=== PATIENT | male | born 1935 | race Caucasian/White ===

== ENCOUNTER 2016-09-24 10:41 | Inpatient (IN) | payer MEDICARE ==
[~2016-09-24] VITALS: Ht 177.8 cm; Wt 88.5 kg
--- NOTE | 2016-09-24 11:15 | NUR ---
PT TO ROOM 2217 FROM OFFICE. AT SIDE.ASSESSMENT PER ADMIT PACK.IV SITED TO LEFT AC X2 STICKS USING ASEPTIC TECH,20G. NPO ORDERED
[2016-09-24 12:11] LABS: BASOPHILS 0.1 % (0-2); EOSINOPHILS 0 % (0-7); HEMATOCRIT 36.2 % (42.0-54.0); HEMOGLOBIN 12.2 g/dL (13.5-17.5); IMMATURE GRANULOCYTES 0.5 % (0-5); LYMPHOCYTES 3.2 % (15-50); MCH 29.8 pg (26.0-34.0); MCHC 33.7 g/dL (31.0-37.0); MCV 88.5 fL (80.0-100.0); MEAN PLATELET VOLUME 11.1 fL (7.4-10.4); MONOCYTES 6.4 % (2-11); NEUTROPHILS 89.8 % (40-80); PLATELET COUNT 173 10x3/uL (130-400); RBC 4.09 10x6/uL (4.20-6.10); RDW 13.3 % (11.5-14.5); WBC 16.7 10x3/uL (4.8-10.8)
[2016-09-24 12:31] LABS: ALBUMIN 2.3 g/dL (3.4-5.0); ANION GAP 14.9 mmol/L (8-16); BILIRUBIN - TOTAL 0.4 mg/dL (0.2-1.3); CARBON DIOXIDE 25.6 mmol/L (21.0-32.0); CREATININE - SERUM 2.7 mg/dL (0.6-1.3); POTASSIUM - SERUM 4.5 mmol/L (3.5-5.1); PROTEIN - SERUM 7.4 g/dL (6.4-8.2)
[2016-09-24 13:28] VITALS: BP 146/73
[2016-09-24 14:12] LABS: AMORPHOUS SEDIMENT >1+ /lpf (NONE SEEN); APPEARANCE HAZY (CLEAR); BACTERIA FEW /hpf (NONE SEEN); BILIRUBIN NEGATIVE (NEGATIVE); COLOR YELLOW (YELLOW); EPITHELIAL CELLS 0-5 /hpf (0-5); GLUCOSE 1000 mg/dL (NEGATIVE); GRANULAR CAST 0-5 /lpf (NONE SEEN); HYALINE CAST 0-5 /lpf (NONE SEEN); KETONE NEGATIVE (NEGATIVE); LEUKOCYTE ESTERASE NEGATIVE (NEGATIVE); MUCUS >1+ /lpf (NONE SEEN); NITRITE NEGATIVE (NEGATIVE); PROTEIN 3+ mg/dL (NEGATIVE); RED CELLS - URINE 0-5 /hpf (0-5); UROBILINOGEN NORMAL (NORMAL); WHITE CELLS - URINE 0-5 /hpf (0-5)
[2016-09-24 16:11] VITALS: BP 146/73; BMI 28.1
[2016-09-24 16:15] VITALS: BP 127/66
[2016-09-24] MEDS ORDERED: GLUCOTROL 5 MG T5 MG PO (17:42)
[2016-09-24] MEDS ORDERED: NIFEDIPINE ER90 MG PO (17:43)
[2016-09-24] MEDS ORDERED: JANUVIA50 MG PO (17:43)
[2016-09-24] MEDS ORDERED: FENOFIBRATE160 MG PO (17:44)
[2016-09-24] MEDS ORDERED: LIPITOR20 MG PO (17:44)
[2016-09-24] MEDS ORDERED: LOTENSIN40 MG PO (17:45)
[2016-09-24] MEDS ORDERED: MULTIPLE VITAMI1 TA1 PO (17:45)
[2016-09-24 19:00] VITALS: BP 128/64
[2016-09-25] VITALS: BP 154/71
--- NOTE | 2016-09-25 03:08 | NUR ---
RESTING WITH EYES CLOSED, NO DISTRESS NOTED, FALL PRECAUTIONS IN PLACE, CL IN REACH
[2016-09-25 05:08] LABS: BASOPHILS 0 % (0-2); EOSINOPHILS 0 % (0-7); HEMATOCRIT 34.7 % (42.0-54.0); HEMOGLOBIN 11.5 g/dL (13.5-17.5); IMMATURE GRANULOCYTES 0.4 % (0-5); LYMPHOCYTES 5.2 % (15-50); MCH 29.6 pg (26.0-34.0); MCHC 33.1 g/dL (31.0-37.0); MCV 89.2 fL (80.0-100.0); MEAN PLATELET VOLUME 11.6 fL (7.4-10.4); MONOCYTES 7.7 % (2-11); NEUTROPHILS 86.7 % (40-80); PLATELET COUNT 185 10x3/uL (130-400); RBC 3.89 10x6/uL (4.20-6.10); RDW 13.5 % (11.5-14.5); WBC 13.4 10x3/uL (4.8-10.8)
[2016-09-25 05:31] LABS: ANION GAP 16.1 mmol/L (8-16); BILIRUBIN - TOTAL 0.31 mg/dL (0.2-1.3); CALCIUM 8.6 mg/dL (8.5-10.1); CARBON DIOXIDE 24.6 mmol/L (21.0-32.0); CREATININE - SERUM 2.7 mg/dL (0.6-1.3); POTASSIUM - SERUM 4.7 mmol/L (3.5-5.1); PROTEIN - SERUM 6.9 g/dL (6.4-8.2)
[2016-09-25 08:49] VITALS: BP 153/75
--- NOTE | 2016-09-25 10:38 | NUR ---
* Is the patient Alert and Oriented? Yes 0 * How many steps to enter\exit or inside your home? 2 0 * PCP [facility] 0 * Pharmacy [facility] 0 * Preadmission Environment Home Alone 0 * ADLs Independent 0 * Equipment None 0 * List name and contact numbers for known caregivers / representatives who currently or will assist patient after discharge: [facility] ([phone]) 0 * Community resources currently utilized None 0 * Additional services required to return to the preadmission environment? No 0 * Can the patient safely return to the preadmission environment? Yes 0 * Has this patient been hospitalized within the prior 30 days at any hospital? No 0 Grand Total: 0 Patient Name: GABRIELA MARTIN Admission Status: Elective Accout number: [id number] Admission Date: 09-24-2016 : 1937 Admission Diagnosis: Attending: ASHTYN Current LOS: 1 Anticipated DC Date: 09-28-2016 Planned Disposition: Home Primary Insurance: [employer] PPO MCR [employer] Discharge Planning Comments: CM met with patient and ([facility]) to assess discharge planning needs. Patient lives independently with his and plans to return there. Patient denies any HH or Cm needs at this time. 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 CM will continue to follow and assist as needed. PCP: Ashtyn Pharmacy: [facility] - [facility] ([phone]) Senior Asp Net Developer: Nicole Munroe
[2016-09-25 12:41] VITALS: BP 147/74
[2016-09-25 13:14] VITALS: Ht 177.8 cm; Wt 88.5 kg
[2016-09-25 16:23] VITALS: BP 154/76
--- NOTE | 2016-09-25 18:30 | NUR ---
APPLIED SCDS TO BILATERAL LEGS
--- NOTE | 2016-09-25 19:19 | NUR ---
GAVE PATIENT A LARGE CUP OF ICE WATER.
[2016-09-25 23:11] VITALS: BP 118/62
[2016-09-26] VITALS (10 sets, daily range): BP systolic 120–170; BP diastolic 57–94
[2016-09-26 05:09] LABS: BASOPHILS 0 % (0-2); EOSINOPHILS 0.2 % (0-7); HEMATOCRIT 33.5 % (42.0-54.0); HEMOGLOBIN 11.4 g/dL (13.5-17.5); IMMATURE GRANULOCYTES 0.2 % (0-5); LYMPHOCYTES 6.8 % (15-50); MCH 29.6 pg (26.0-34.0); MEAN PLATELET VOLUME 10.7 fL (7.4-10.4); MONOCYTES 5.8 % (2-11); PLATELET COUNT 171 10x3/uL (130-400); RBC 3.85 10x6/uL (4.20-6.10); RDW 13.7 % (11.5-14.5); WBC 13.1 10x3/uL (4.8-10.8)
[2016-09-26 05:40] LABS: ALBUMIN 1.8 g/dL (3.4-5.0); ANION GAP 14.8 mmol/L (8-16); BILIRUBIN - TOTAL 0.3 mg/dL (0.2-1.3); CALCIUM 8.5 mg/dL (8.5-10.1); CARBON DIOXIDE 24.4 mmol/L (21.0-32.0); CREATININE - SERUM 2.4 mg/dL (0.6-1.3); POTASSIUM - SERUM 4.2 mmol/L (3.5-5.1); PROTEIN - SERUM 6.5 g/dL (6.4-8.2)
--- NOTE | 2016-09-26 07:20 | NUR ---
PATIENT RECEIVED ALERT IN LOW BROWN POSITION WATCHING TV. NO SIGNS OF DISTRESS NOTED. DENIES NEEDS. SIDE RAILS UP X2. BED IN LOW POSITION. CALL LIGHT IN REACH.
--- NOTE | 2016-09-26 08:23 | NUR ---
PATIENT ALERT IN BED. NO SIGNS OF DISTRESS NOTED. ORAL MEDICATION HELD FOR NPO STATUS FOR SURGERY. SCHEDULED PROTONIX ADMINISTERED. IV TO LEFT AC PATENT. FLUSHES EASY. NO REDNESS OR INFLAMMATION NOTED. DENIES NEEDS. SIDE RAILS UP X2. BED IN LOW POSITION. CALL LIGHT IN REACH.
--- NOTE | 2016-09-26 11:10 | NUR ---
PATIENT ALERT IN BED. NO SIGNS OF DISTRESS NOTED. IV ABX INITIATED. DENIES NEEDS. SIDE RAILS UP X2. BED IN LOW POSITION. CALL LIGHT IN REACH.
--- NOTE | 2016-09-26 13:36 | NUR ---
PATIENT OFF FLOOR TO SURGERY VIA BED
--- NOTE | 2016-09-26 15:44 | NUR ---
UNDERPANTS REMOVED AND PLACED ON BED PRIOR TO PREP
--- NOTE | 2016-09-26 16:45 | NUR ---
PATIENT BACK TO ROOM FROM PACU. VITAL SIGNS STABLE. LAP SITES TO ABD CLEAN DRY INTACT. DRESSING TO RIGHT ABD CARLOS ALBERTO DRAIN SATURATED. DRESSING CHANGED. LINEN CHANGE COMPLETE. POSITIONED FOR COMFORT. WELL TOLERATED. SCDS ON BILATERALLY. SIDE RAILS UP X3. BED IN LOW POSITION. CALL LIGHT IN REACH.
--- NOTE | 2016-09-26 17:05 | NUR ---
ROUND DIME SIZE WOUND (SKIN TEAR) ON RT SIDE ABDOMEN NOTED ON ARRIVAL TO PACU, WAS NOTED ON ADMISSION PRE-OP PER TRANSPORTATION ATTENDANT. PATIENT HAS CARLOS ALBERTO DRAIN THAT IS STEADY LEAKING SERROUS FLUID AROUND INSERTION SITE. DRESSING RE-INFORCED. PATIENT LEFT PACU AT ON NC 6L. FLOOR RN REQUESTED OXYMIZER, AND I RETURNED WITH ONE AND PLACED ON PATIENT IN ROOM.
--- NOTE | 2016-09-26 17:35 | NUR ---
DRESSING TO CARLOS ALBERTO DRAIN CHANGED. POSITIONED IN BED FOR DINNER. VITAL SIGNS REMAIN STABLE. AT BEDSIDE. SIDE RAILS UP X2. BED IN LOW POSITION. CALL LIGHT IN REACH. WILL CONTINUE TO MONITOR.
--- NOTE | 2016-09-26 19:00 | NUR ---
PATIENT RESTING WITH EYES CLOSED. AROUSES TO VOICE. RR EVEN AND UNLABORED. 02 SATS 96% ON 6L OXYMIZER. CHANGED PATIENT TO NC AND TURNED DOWN TO 4L. DENIES PAIN AT THIS TIME. IV TO LEFT AC PATENT WITH NO REDNESS OR SWELLING. CARLOS ALBERTO DRAIN TO RIGHT ABD WITH DRESSING CDI. SCD'S IN ROOM BUT OFF. TELEMETRY ON. AT BEDSIDE. SRX2. BED LOW. CALL LIGHT WITHIN REACH.
--- NOTE | 2016-09-26 22:15 | NUR ---
NIGHTTIME MEDICATIONS ADMINISTERED. 16 UNITS HUMALOG GIVEN FOR BS OF 387.
[2016-09-27] VITALS: BP 137/73
[2016-09-27 04:00] VITALS: BP 126/75
[2016-09-27 05:46] LABS: BASOPHILS 0 % (0-2); EOSINOPHILS 0 % (0-7); HEMATOCRIT 29.2 % (42.0-54.0); HEMOGLOBIN 9.9 g/dL (13.5-17.5); IMMATURE GRANULOCYTES 0.4 % (0-5); LYMPHOCYTES 3.7 % (15-50); MCH 29.7 pg (26.0-34.0); MCHC 33.9 g/dL (31.0-37.0); MCV 87.7 fL (80.0-100.0); MEAN PLATELET VOLUME 11.3 fL (7.4-10.4); MONOCYTES 3.9 % (2-11); RBC 3.33 10x6/uL (4.20-6.10); RDW 14.5 % (11.5-14.5); WBC 12.6 10x3/uL (4.8-10.8)
[2016-09-27 05:50] LABS: PLATELET COUNT 217 10x3/uL (130-400)
[2016-09-27 06:34] LABS: ALBUMIN 1.5 g/dL (3.4-5.0); ANION GAP 16.9 mmol/L (8-16); BILIRUBIN - TOTAL 0.2 mg/dL (0.2-1.3); CALCIUM 7.4 mg/dL (8.5-10.1); CARBON DIOXIDE 20.7 mmol/L (21.0-32.0); CREATININE - SERUM 2.5 mg/dL (0.6-1.3); POTASSIUM - SERUM 4.6 mmol/L (3.5-5.1); PROTEIN - SERUM 5.9 g/dL (6.4-8.2)
--- NOTE | 2016-09-27 07:35 | NUR ---
TURNED PATIENT'S O2 DOWN TO 2L. 10 UNITS HUMALOG GIVEN FOR BS OF 292.
--- NOTE | 2016-09-27 07:35 | NUR ---
ASSESSMENT PER FLOW SHEET.PT WITHOUT DISTRESS AND DENIES PAIN AT PRESENT. LAP SITES X2 CLEAN AND DRY.CARLOS ALBERTO DRAIN LLQ WITH MINIMAL DRAINAGE IN BULB,BULB DEFLATED.CALL LIGHT IN REACH
[2016-09-27 08:05] VITALS: BP 159/81
--- NOTE | 2016-09-27 09:38 | OP ---
PATIENT NAME: GABRIELA MARTIN MEDICAL RECORD: [id number] :37 LOCATION:[id number] ADMISSION DATE:09/24/16 SURGEON: MATHEW SANCHEZ MD DATE OF OPERATION: 09/26/2016 SURGEON: Mathew Sanchez MD PREOPERATIVE DIAGNOSES: Cholecystitis, bacteremia, and diabetes. POSTOPERATIVE DIAGNOSES: Gangrenous cholecystitis, bacteremia, diabetes, and intraabdominal abscess. ANESTHESIA: General. COMPLICATIONS: None. SPECIMENS: Gallbladder. Case was grossly contaminated. ESTIMATED BLOOD LOSS: 80 cc. OPERATIVE COURSE: After consent was obtained, the patient was taken to the operating room and placed in the supine position on the operating table. Next, general anesthesia was given via endotracheal intubation. After a timeout was performed that confirmed the correct patient and procedure, the abdomen was then prepped and draped in typical sterile fashion. Local anesthetic was injected just above the umbilicus. A stab incision was made just above the umbilicus. Using a 5-mm bladeless optical trocar, the abdomen was entered under direct laparoscopic vision. Adequate pneumoperitoneum was achieved. The abdominal cavity was inspected. No evidence of bowel injury. No evidence of bleeding. There was a large walled off abscess in the anterior surface of the liver between the liver and the abdominal pleura. This abscess cavity was entered. The fluid was sent for culture as well as Gram stain. The area was copiously irrigated and suctioned. At this time, all remaining trocars were placed into the abdomen after the administration of local anesthetic, two 5-mm trocars in the right upper quadrant and 11-mm trocar in the subxiphoid position. The fundus of the gallbladder was grasped and retracted cephalad. The infundibulum was grasped and retracted laterally. There is a large phlegmonous amount of inflammation around the gallbladder and the common bile duct. Hydrodissection was performed using the suction livestock agent until the duct and artery were identified. At that time, the critical view was obtained with the liver in the posterior window. Three clips were placed in the proximal cystic duct, 1 clip distal and 2 clips were placed in the proximal cystic artery, 1 clip distal. The duct and artery were transected with laparoscopic Metzenbaum scissors. The remaining portion of the gallbladder was then peeled off the liver bed with blunt dissection. It was grasped with the tenaculum and removed through the 11-mm trocar and sent for permanent pathology. Next, the area was copiously irrigated and suctioned. Careful attention was paid to hemostasis, which was obtained in the liver bed using electrocautery and Jose. The clips were in place on both the cystic duct and cystic artery. The abdominal cavity was copiously irrigated and suctioned. Again, no evidence of bowel injury. No evidence of bleeding. No evidence of bile leak. At this time, a CARLOS ALBERTO drain was placed into the foramen of [place]. All remaining instruments were removed. The abdomen was desufflated. Trocars were removed. Skin was closed with 4-0 OPERATIVE REPORT [id number] GABRIELA MARTIN Monocryl, Mastisol and Steri-Strips. At the end of the case, all needle and instrument counts were correct. No complications occurred. The patient was extubated and transferred to the PACU in stable condition. TRANSINT:[id number] Voice Confirmation ID: [id number] DOCUMENT ID: [id number] MATHEW SANCHEZ MD at 0938 CC: [id number] DICTATION DATE: 09/26/16 1613 PROFESSOR OF RELIGIOUS STUDIES: 09/27/16 0201 ADM IN [facility] [address] [place] [address]
[2016-09-27 12:55] VITALS: BP 157/81
--- NOTE | 2016-09-27 13:14 | NUR ---
NUTRITION MONITORING & EVAL CHART REVIEWED. PT VISIT. TOLERATING REG DIET WITH GOOD INTAKE BREAKFAST. WILL CONTINUE TO PROVIDE DIET, MONITOR PO INTAKE. RD FOLLOWING
[2016-09-27] MEDS ORDERED: LEVAQUIN250 MG PO (13:32)
--- NOTE | 2016-09-27 14:01 | NUR ---
IV LEFT AC LEAKING,DCD WITH CATH INTACT.IV SITED TO LEFT FOREARM X2 STICKS USING ASEPTIC TECH 20G.
--- NOTE | 2016-09-27 15:09 | NUR ---
SATURATION DROPPED TO 86% ON R/A WHILE AT REST. O2 AT 2L PER NC APPLIED. PATIENT REPORTS BEING OFF OF O2 FOR A COUPLE HOURS. STATES HE FELT " A LITTLE SHORT OF BREATH WHEN UP IN ROOM" PULSE 107 RRR. ENCOURAGED PATIENT TO COUGH AND DEEP BREATHE. EDUCATED PATIENT ON USE OF INCENTIVE SPIROMETER. CALLED [place] AJES TO HOLD D/C AT THIS TIME. INFORMED PATIENT AND OF PLAN OF CARE.
[2016-09-27 15:48] LABS: CREATININE - URINE 39.9 mg/dL (30-125); PROTEIN - URINE 96.6 mg/dL (0.0-11.9)
[2016-09-27 15:53] VITALS: BP 150/81
--- NOTE | 2016-09-27 17:15 | NUR ---
REMAINS WITHOUT CHANGE FROM INITIAL SHIFT ASSESSMENT.STILL DENIES PAIN.REMAINS WITHOUT NAUSEA AND VOMITING ,EATING 100% OF MEALS.40CC OF RED COLORED FLUID EMPTIED FROM CARLOS ALBERTO DRAIN.CONT PLAN OF CARE
[2016-09-27 19:00] VITALS: BP 170/71
--- NOTE | 2016-09-27 22:45 | NUR ---
RN NOTE: IV IN LEFT FA LEAKING AND SWOLLEN. REMOVED WITH CATHETER TIP INTACT AND PLACED PRESSURE DRESSING. RE-SITED TO RIGHT FA USING 20 GUAGE CATHETER IN 2 STICKS. IV FLUIDS AND ANTIBIOTIC RE-STARTED. PT TOLERATED WELL. GAVE FRESH ICE WATER PER REQUEST. WILL CONTINUE TO MONITOR FOR NEEDS.
[2016-09-28] VITALS: BP 146/77
[2016-09-28 04:00] VITALS: BP 125/103
[2016-09-28 05:20] LABS: BASOPHILS 0.1 % (0-2); EOSINOPHILS 0.1 % (0-7); HEMATOCRIT 26.6 % (42.0-54.0); IMMATURE GRANULOCYTES 1.5 % (0-5); LYMPHOCYTES 3.6 % (15-50); MCH 29.2 pg (26.0-34.0); MCHC 33.8 g/dL (31.0-37.0); MCV 86.4 fL (80.0-100.0); MEAN PLATELET VOLUME 10.9 fL (7.4-10.4); MONOCYTES 10.3 % (2-11); NEUTROPHILS 84.4 % (40-80); PLATELET COUNT 242 10x3/uL (130-400); RBC 3.08 10x6/uL (4.20-6.10); RDW 14.3 % (11.5-14.5)
--- NOTE | 2016-09-28 05:24 | NUR ---
RUGBY UNION FOOTBALLER REPORTED HIGH BLOOD PRESSURE, MANUAL WAS 168/72
[2016-09-28 05:36] LABS: ALBUMIN 1.5 g/dL (3.4-5.0); ANION GAP 13.2 mmol/L (8-16); BILIRUBIN - TOTAL 0.28 mg/dL (0.2-1.3); CALCIUM 7.1 mg/dL (8.5-10.1); CARBON DIOXIDE 21.9 mmol/L (21.0-32.0); CREATININE - SERUM 2.3 mg/dL (0.6-1.3); MAGNESIUM - SERUM 2.4 mg/dL (1.8-2.4); POTASSIUM - SERUM 4.1 mmol/L (3.5-5.1); PROTEIN - SERUM 5.5 g/dL (6.4-8.2)
--- NOTE | 2016-09-28 06:42 | NUR ---
PATIENT REPORTS HAVING A BM
--- NOTE | 2016-09-28 07:10 | NUR ---
ASSESSMENT PER FLOW SHEET.PT WITHOUT DISTRESS.LAP SITES X2 TO ABDOMEN CDI.CARLOS ALBERTO RLL WITHOUT DRAINAGE IN BULB.ABDOMEN SLIGHTLY DISTENDED,BS+,REPORTS LARGE STOOL THIS AM.DENIES PAIN.CALL LIGHT IN REACH
[2016-09-28 08:00] VITALS: BP 117/78
--- NOTE | 2016-09-28 09:53 | NUR ---
IV DCD WITH CATH INTACT.CARLOS ALBERTO DRAIN DCD ORDERED.PT TOLERATED WELL.PT WILL SHOWER BEFORE DC HOME
[2016-09-28 11:03] VITALS: BP 156/84
--- NOTE | 2016-09-28 13:20 | NUR ---
IV RESITED TI RIGHT FOREARMX1 STICK USING ASEPTIC TECH 22G.TOLERATED WELL.
--- NOTE | 2016-09-28 13:56 | NUR ---
ROOM CLEANED BY EVS.BED CHANGE.PT HAS SHOWERED THIS AM.
[2016-09-28 15:01] VITALS: BP 161/69
--- NOTE | 2016-09-28 16:30 | NUR ---
FSBS 247,INSULIN ORDERED PER MAR.REMAINS WITHOUT CHANGE FROM INITIAL ASSESSMENT.CONT PLAN OF CARE
[2016-09-28 20:00] VITALS: BP 115/79
[2016-09-29 00:11] VITALS: BP 151/69
--- NOTE | 2016-09-29 03:52 | NUR ---
PATIENT RESTING IN BED AND REQUESTED HIS AC BE TURNED OFF AND A TYLENOL FOR MINOR PAIN. BED IN LOWEST POSITION AND CALL LIGHT WITHIN REACH. ENCOURAGED THE PATIENT TO CALL IF HE HAS FURTHER NEEDS.
[2016-09-29 04:00] VITALS: BP 171/63
[2016-09-29 05:36] LABS: BASOPHILS 0.1 % (0-2); EOSINOPHILS 0.9 % (0-7); HEMATOCRIT 27.1 % (42.0-54.0); HEMOGLOBIN 9.1 g/dL (13.5-17.5); IMMATURE GRANULOCYTES 3.9 % (0-5); LYMPHOCYTES 6.1 % (15-50); MCH 29.3 pg (26.0-34.0); MCHC 33.6 g/dL (31.0-37.0); MCV 87.1 fL (80.0-100.0); MEAN PLATELET VOLUME 10.6 fL (7.4-10.4); MONOCYTES 9.5 % (2-11); NEUTROPHILS 79.5 % (40-80); PLATELET COUNT 256 10x3/uL (130-400); RBC 3.11 10x6/uL (4.20-6.10); RDW 14.3 % (11.5-14.5); WBC 11.4 10x3/uL (4.8-10.8)
[2016-09-29 05:53] LABS: ALBUMIN 1.5 g/dL (3.4-5.0); ANION GAP 11.4 mmol/L (8-16); BILIRUBIN - TOTAL 0.3 mg/dL (0.2-1.3); CALCIUM 7.1 mg/dL (8.5-10.1); CARBON DIOXIDE 25.7 mmol/L (21.0-32.0); CREATININE - SERUM 1.8 mg/dL (0.6-1.3); POTASSIUM - SERUM 4.1 mmol/L (3.5-5.1); PROTEIN - SERUM 5.2 g/dL (6.4-8.2)
--- NOTE | 2016-09-29 07:10 | NUR ---
REPORT RECEIVED FROM SIZER HAND NURSE. CALL LIGHT IN REACH.
[2016-09-29 08:59] VITALS: BP 169/91
--- NOTE | 2016-09-29 09:55 | NUR ---
BED BATH GIVEN PER . NO NEEDS VOICED AT THIS TIME. CALL LIGHT IN REACH.
--- NOTE | 2016-09-29 10:32 | NUR ---
ASSESSMENT COMPLETED. AM MEDS ADMINISTERED. CALL LIGHT IN REACH. REFUSES SCDs. IN ROOM. CALL LIGHT IN REACH. WILL CONTINUE WITH PLAN OF CARE.
--- NOTE | 2016-09-29 12:04 | NUR ---
KAVIN IVPB. FSBS 238 SO 8 UNITS SUBQ TO LEFT ARM. CALL LIGHT IN REACH.
[2016-09-29 13:13] VITALS: BP 162/88
--- NOTE | 2016-09-29 13:26 | NUR ---
FLAGYL 500 MG IVPB PER ORDER. AT BEDSIDE. CALL LIGHT IN REACH.
--- NOTE | 2016-09-29 14:41 | NUR ---
AMBPICILLIN IVPB PER ORDER. WAITING TO GO TO CT
--- NOTE | 2016-09-29 14:59 | NUR ---
RESTING QUIETLY IN BED. FAMILY AT BEDSIDE. NO C/O PAIN OR DISCOMFORT AT THIS TIME. REPORTS HAVING SOME DIARRHEA AT THIS TIME. DR CONCEPCION HAS ADDRESSED THIS. DENIES NEEDS.
--- NOTE | 2016-09-29 16:56 | NUR ---
10 UNITS HUMALOG SUBQ TO RIGHT ARM FOR BLOOD SUGAR OF 258.
[2016-09-29 17:43] VITALS: BP 171/86
--- NOTE | 2016-09-29 18:00 | NUR ---
NO CHANGES IN INITIAL ASSESSMENT. STILL REFUSES SCDs AT THIS TIME. CALL LIGHT IN REACH. WILL CONTINUE WITH PLAN OF CARE.
--- NOTE | 2016-09-29 18:02 | NUR ---
TO CT VIA WC.
[2016-09-29 20:00] VITALS: BP 156/67
--- NOTE | 2016-09-29 20:00 | NUR ---
PATIENT IS RESTING IN BED AND DENIES NEEDS AT THIS TIME. BED IN LOWEST POSITION AND CALL LIGHT WITHIN REACH. ENCOURAGED THE PATIENT TO CALL IF SHE HAS NEEDS.
[2016-09-30] VITALS: BP 156/69
[2016-09-30 04:00] VITALS: BP 145/50
[2016-09-30 07:12] LABS: BASOPHILS 0.1 % (0-2); EOSINOPHILS 0.6 % (0-7); HEMATOCRIT 28.6 % (42.0-54.0); HEMOGLOBIN 9.5 g/dL (13.5-17.5); IMMATURE GRANULOCYTES 5.5 % (0-5); MCH 29.1 pg (26.0-34.0); MCHC 33.2 g/dL (31.0-37.0); MCV 87.5 fL (80.0-100.0); MEAN PLATELET VOLUME 10.4 fL (7.4-10.4); MONOCYTES 8.2 % (2-11); NEUTROPHILS 78.6 % (40-80); PLATELET COUNT 273 10x3/uL (130-400); RBC 3.27 10x6/uL (4.20-6.10); RDW 14.1 % (11.5-14.5); WBC 12.3 10x3/uL (4.8-10.8)
--- NOTE | 2016-09-30 07:15 | NUR ---
REPORT RECEIVED FROM ACTING MANAGER NURSE. CALL LIGHT IN REACH.
[2016-09-30 07:30] LABS: ALBUMIN 1.6 g/dL (3.4-5.0); ANION GAP 12.3 mmol/L (8-16); BILIRUBIN - TOTAL 0.35 mg/dL (0.2-1.3); CALCIUM 7.3 mg/dL (8.5-10.1); CARBON DIOXIDE 26.3 mmol/L (21.0-32.0); CREATININE - SERUM 1.5 mg/dL (0.6-1.3); POTASSIUM - SERUM 3.6 mmol/L (3.5-5.1); PROTEIN - SERUM 5.4 g/dL (6.4-8.2)
--- NOTE | 2016-09-30 08:05 | NUR ---
IV SL'D SO PATIENT CAN TAKE A SHOWER AT THIS TIME. IN ROOM TO ASSIST PATIENT PER HER REQUEST.
[2016-09-30 09:02] VITALS: BP 163/76
--- NOTE | 2016-09-30 10:11 | NUR ---
ASSESSMENT COMPLETED. AM MEDS ADMINISTERED. REFUSES SCDs. CALL LIGHT IN REACH. WILL CONTINUE WITH PLAN OF CARE.
--- NOTE | 2016-09-30 11:51 | NUR ---
IV FLAGYL ADMINISTERED PER ORDER. 10 UNITS SUBQ TO RIGHT ARM. FLORAJEN PO. CALL LIGHT IN REACH.
[2016-09-30 12:44] VITALS: BP 149/63
--- NOTE | 2016-09-30 12:57 | NUR ---
AMPICILLIN IVPB PER ORDER. VISITOR IN ROOM. CALL LIGHT IN REACH.
--- NOTE | 2016-09-30 13:26 | NUR ---
RESTING QUIETLY IN BED. TOLERATING DIABETIC DIET WITHOUT DIFFICULTY.
--- NOTE | 2016-09-30 14:03 | NUR ---
DR. LAM IN ROOM TO SEE PATIENT.
--- NOTE | 2016-09-30 16:55 | NUR ---
CONSENT FORM SIGNED AND WITNESSED FOR THORACENTESIS. BLOOD SUGAR COVERED PER PROTOCOL.
[2016-09-30 17:19] VITALS: BP 156/75
--- NOTE | 2016-09-30 18:15 | NUR ---
IV ABX INFUSING. NO CHANGES IN INITIAL ASSESSMENT. CALL LIGHT IN REACH. IN ROOM. STILL REFUSES SCDs. WILL CONTINUE WITH PLAN OF CARE.
--- NOTE | 2016-09-30 19:52 | NUR ---
PATIENT RESTING IN BED WITH GUEST AT BEDSIDE AND DENIES NEEDS AT THIS TIME. BED IN LOWEST POSITION AND CALL LIGHT WITHIN REACH. ENCOURAGED THE PATIENT TO CALL IF HE HAS NEEDS.
[2016-09-30 20:00] VITALS: BP 157/76
[2016-10-01] VITALS (12 sets, daily range): BP systolic 115–171; BP diastolic 65–112
--- NOTE | 2016-10-01 07:15 | NUR ---
PATIENT RECEIVED ALERT IN HIGH BROWN POSITION. NO SIGNS OF DISTRESS NOTED. DENIES NEEDS AND PAIN. AT BEDSIDE. SIDE RAILS UP X2. BED IN LOW POSITION. CALL LIGHT IN REACH.
--- NOTE | 2016-10-01 08:20 | NUR ---
ALERT IN BED. NO SIGNS OF DISTRESS NOTED. ORAL MEDICATION HELD FOR NPO STATUS. SCHEDULED PROTONIX IV ADMINISTERED. DENIES NEEDS. PRESENT. SIDE RAILS UP X2. BED IN LOW POSITION. CALL LIGHT IN REACH.
[2016-10-01 09:11] LABS: BASOPHILS 0.1 % (0-2); EOSINOPHILS 0.5 % (0-7); HEMATOCRIT 27.7 % (42.0-54.0); HEMOGLOBIN 9.2 g/dL (13.5-17.5); IMMATURE GRANULOCYTES 4.3 % (0-5); LYMPHOCYTES 5.4 % (15-50); MCH 29.1 pg (26.0-34.0); MCHC 33.2 g/dL (31.0-37.0); MCV 87.7 fL (80.0-100.0); MEAN PLATELET VOLUME 10.4 fL (7.4-10.4); MONOCYTES 8.1 % (2-11); NEUTROPHILS 81.6 % (40-80); RBC 3.16 10x6/uL (4.20-6.10); RDW 13.9 % (11.5-14.5); WBC 14.8 10x3/uL (4.8-10.8)
[2016-10-01 09:13] LABS: PLATELET COUNT 335 10x3/uL (130-400)
[2016-10-01 09:19] LABS: APTT 29.9 SECONDS (22.8-39.4); INR 1.03 (0.85-1.17); PROTIME 13.4 SECONDS (11.6-15.0)
[2016-10-01 09:20] LABS: ANION GAP 9.2 mmol/L (8-16); CALCIUM 7.2 mg/dL (8.5-10.1); CARBON DIOXIDE 27.4 mmol/L (21.0-32.0); CREATININE - SERUM 1.4 mg/dL (0.6-1.3); POTASSIUM - SERUM 3.6 mmol/L (3.5-5.1)
--- NOTE | 2016-10-01 09:28 | NUR ---
PATIENT OFF FLOOR TO CT VIA BED
--- NOTE | 2016-10-01 10:55 | NUR ---
PATIENT RECEIVED BACK TO ROOM FROM CT. VITAL SIGNS STABLE. PATIENT A/O X4. ICE WATER PROVIDED. SIDE RAILS UP X2. BED IN LOW POSITION. CALL LIGHT IN REACH.
--- NOTE | 2016-10-01 11:09 | NUR ---
ACCU CHECK 212. INSULIN PER SLIDING SCALE. DENIES NEEDS. PRESENT. SIDE RAILS UP X2. BED IN LOW POSITION. CALL LIGHT IN REACH.
--- NOTE | 2016-10-01 11:40 | NUR ---
CM REASSESSMENT NOTE: CM SPOKE WITH PATIENT AND SPOUSE REGARDING COST OF PO ABX AT DISCHARGE. PATIENT AND SPOUSE STATED THE COST WAS FINE. CM WILL CONTINUE TO FOLLOW PATIENT WITH D/C NEEDS AND PLANS.
[2016-10-01 12:10] LABS: PROTEIN - BODY FLUID 2.5 G/DL
[2016-10-01 12:33] LABS: LYMPH - BF 57 %; MACROPHAGES BF 10 %; MESOTHELIALS BF 2 %; NEUT - BF 31 %
--- NOTE | 2016-10-01 16:19 | NUR ---
ALERT IN BED VISITING WITH GUEST. ACCU CHECK 260. INSULIN PER SLIDING SCALE. DENIES NEEDS. SIDE RAILS UP X2. BED IN LOW POSITION. CALL LIGHT IN REACH.
--- NOTE | 2016-10-01 16:19 | NUR ---
ALERT IN BED WATCHING TV. NO SIGNS OF DISTRESS NOTED. ACCU CHECK 292. INSULIN PER SLIDING SCALE. DENIES NEEDS. SIDE RAILS UP X2. BED IN LOW POSITION. CALL LIGHT IN REACH.
--- NOTE | 2016-10-01 17:40 | NUR ---
SITTING UP ON SIDE OF BED EATING DINNER. TOLERATING WELL. DENIES NEEDS. BED IN LOW POSITION. CALL LIGHT IN REACH.
--- NOTE | 2016-10-01 20:00 | NUR ---
ASSESSMENT PER FLOWSHEET. DRESSING TO POSTERIOR RT BACK C/D/I. LAP SITES TO ABDOMEN X5 C/D/I. IV PATENT RT UPPERARM PATENT WITH NS AT 75CC'S/HR SITE CLEAR.
--- NOTE | 2016-10-01 21:15 | NUR ---
MEDS GIVEN PER MAR. SITTING ON SIDE OF BED SR UP X2 CALL LIGHT WITHIN REACH.
[2016-10-02] VITALS: BP 150/67
--- NOTE | 2016-10-02 | NUR ---
EYES CLOSED RESPIRATIONS WITH EASE AND UNLABORED.
--- NOTE | 2016-10-02 03:00 | NUR ---
MEDS GIVEN PER MAR. RESTING QUIETLY DENIES NEEDS.
[2016-10-02 04:00] VITALS: BP 155/74
[2016-10-02 06:46] LABS: BASOPHILS 0.1 % (0-2); EOSINOPHILS 0.7 % (0-7); HEMATOCRIT 25.8 % (42.0-54.0); HEMOGLOBIN 8.7 g/dL (13.5-17.5); IMMATURE GRANULOCYTES 2.2 % (0-5); LYMPHOCYTES 4.6 % (15-50); MCH 29.7 pg (26.0-34.0); MCHC 33.7 g/dL (31.0-37.0); MCV 88.1 fL (80.0-100.0); MEAN PLATELET VOLUME 10.3 fL (7.4-10.4); MONOCYTES 7.3 % (2-11); NEUTROPHILS 85.1 % (40-80); PLATELET COUNT 349 10x3/uL (130-400); RBC 2.93 10x6/uL (4.20-6.10); WBC 14.7 10x3/uL (4.8-10.8)
[2016-10-02 07:04] LABS: ANION GAP 11.1 mmol/L (8-16); CALCIUM 7.1 mg/dL (8.5-10.1); CARBON DIOXIDE 27.4 mmol/L (21.0-32.0); CREATININE - SERUM 1.5 mg/dL (0.6-1.3); POTASSIUM - SERUM 3.5 mmol/L (3.5-5.1)
--- NOTE | 2016-10-02 07:55 | NUR ---
PT AOX4 RESP EVEN AND NONLABORED PT DENIES NEEDS AT THIS TIME SRX2 BED AT LOWEST SETTING CALL LIGHT WITHIN REACH
[2016-10-02 08:17] VITALS: BP 164/77
[2016-10-02 12:32] VITALS: BP 168/77
[2016-10-02] MEDS ORDERED: LEVAQUIN250 MG PO (13:05)
[2016-10-02] MEDS ORDERED: FLORAJEN3 CAPS460 MG PO (13:05)
[2016-10-02] MEDS ORDERED: DOXYCYCLINE HY100 M2 PO (13:05)
[2016-10-02] MEDS ORDERED: FLAGYL500 MG PO (13:05)
--- NOTE | 2016-10-02 13:23 | NUR ---
CM REASSESSMENT NOTE: PATIENT IS DISCHARGING HOME TODAY- IS DRIVING HIM. DID NOT WANT HOME HEALTH AND HAD NO OTHER NEEDS FOR DISCHARGE. PATIENT IS PICKING UP PRESCRIPTIONS AT [facility].
--- NOTE | 2016-10-02 14:25 | NUR ---
PT IV DISCONTINUED WITH CATHETER INTACT AT THIS TIME PT GIVEN DISCHARGE INSTRUCTIONS AND VERBALIZES UNDERSTANDING AT THIS TIME
--- NOTE | 2016-10-02 14:30 | NUR ---
PT TAKEN VIA WHEELCHAIR VIA PRIVATE VEHICLE AT THIS TIME
[2016-10-02 18:09] LABS: ACID FAST SMEAR Negative (()); AFB SPECIMEN PROCESSING Concentration (())
[2016-10-03 13:21] LABS: FUNGUS STAIN Final report (())
[2016-10-05 13:16] LABS: FUNGUS MYCOLOGY CULTURE Preliminary report (())
== END 2016-10-02 14:31 | disposition home or self-care (01) | DRG 853 ==
LOC: D.MS 10:41
PROVIDERS: Family Medicine; Family Medicine Adult Medicine; General Practice; Internal Medicine Nephrology; Internal Medicine Pulmonary Disease; Surgery; ADMIT Family Medicine
PROC: 0FT44ZZ Resection of Gallbladder, Percutaneous Endoscopic Approach (ICD-10-PCS; principal; 2016-09-26 11:15)
PROC: 0W993ZZ Drainage of Right Pleural Cavity, Percutaneous Approach (ICD-10-PCS; 2016-10-01)
DX: A41.9 Sepsis, unspecified organism (principal); K65.1 Peritoneal abscess; K81.0 Acute cholecystitis; E87.1 Hypo-osmolality and hyponatremia; N17.9 Acute kidney failure, unspecified; R53.1 Weakness; E11.65 Type 2 diabetes mellitus with hyperglycemia; Z79.4 Long term (current) use of insulin; I10 Essential (primary) hypertension; R80.9 Proteinuria, unspecified

== ENCOUNTER → 2017-08-27 08:16 | Outpatient (CLI) | payer MEDICARE ==
[2016-09-25 13:14] VITALS: BMI 28.1
[~2017-08-27 08:16] MED LIST: DOXYCYCLINE HY100 M2 PO; FENOFIBRATE160 MG PO; FLAGYL500 MG PO; FLORAJEN3 CAPS460 MG PO; GLUCOTROL 5 MG T5 MG PO; JANUVIA50 MG PO; LEVAQUIN250 MG PO; LIPITOR20 MG PO; LOTENSIN40 MG PO; MULTIPLE VITAMI1 TA1 PO; NIFEDIPINE ER90 MG PO
== END | disposition home or self-care (01) ==
LOC: D.US 08:16
DX: I12.9 Hypertensive chronic kidney disease with stage 1 through stage 4 chronic kidney disease, or unspecified chronic kidney disease (principal); N18.4 Chronic kidney disease, stage 4 (severe); E11.22 Type 2 diabetes mellitus with diabetic chronic kidney disease; E55.9 Vitamin D deficiency, unspecified; Z68.28 Body mass index [BMI] 28.0-28.9, adult